=== PATIENT | male | born 1990 | race Caucasian/White ===

== ENCOUNTER 2021-08-24 13:15 | Emergency (ER) | payer BC, SELFPAY ==
--- NOTE | 2021-08-24 13:26 | ED.URI ---
HPI - URI/Sore Throat General Chief Complaint: Upper Respiratory Infection Stated Complaint: fever,back pain Source: patient Mode of arrival: ambulatory Limitations: no limitations History of Present Illness HPI Narrative: Mr. Young is a 31-year-old male patient presenting to the clinic today with complaints of fever and back pain x 1 day. He reports fever higher of 101.8 ?F this morning. He also reports some chest discomfort and shortness of breath as well as a throat sore throat. Reports that he was having difficulty walking this morning due to his low back pain. He denies any urinary symptoms or bowel changes. Denies any saddle anesthesia or loss of bowel or bladder. MD elicited complaint: fever, sore throat and nasal congestion Related Data Allergies Allergy/AdvReac Type Severity Reaction Status Date / Time No Known Allergies Allergy Verified 08/24/21 14:24 Review of Systems Review of Systems: Pertinent positives per HPI. Patient denies any chills, rash, headache, visual changes, dizziness, palpitations, nausea, vomiting, diarrhea, constipation, abdominal pain, or any urinary issues. PMFSH Comments At the time of my signature, I reviewed and agree with the nursing past medical, surgical, social, and family history. There is no relevant family history pertinent to the patient complaint. Exam Narrative: General: Well-developed, well nourished,mild to moderate ill-appearing Head: Normocephalic, atraumatic Eyes: Pupils equally round and reactive to light bilaterally, EOM intact, sclera and conjunctive clear, no discharge, lids normal Ears: TMs intact and clear, ear canals clear, no drainage, grossly hearing normal. Nose: Nares patent, clear nasal discharge, no inflammation, no sinus tenderness. Mouth: Oral pharynx without lesions or masses, good dentition, MMM. Oropharynx mildly red without tonsillar swelling or exudate Neck: Supple, trachea midline, no enlargement of anterior or posterior cervical nodes, no thyroid masses or goiter palpable. Cardio: Regular rate and rhythm, s1 and s2 normal, no murmur appreciated. Resp: Clear to auscultation bilaterally, no rhonchi, rales, wheezing or rubs Musculoskeletal: No deformity, tender to palpation over the musculature of the low back, grossly normal range of motion, mild pain with bilateral SLT at approximately 30 degrees, muscle strength strong and equal, peripheral pulse strong, no edema, no cyanosis, normal gait and station Course Course Emergency Course: Portions of this record may have been created with voice recognition software. Level of Care: Express Care Visit Vital Signs Vital signs: Vital signs reviewed MDM - URI/Sore Throat MDM Narrative Medical decision making narrative: At the time of visit patient is resting comfortably on the exam table. Is mild to moderately ill-appearing. Is reporting low back pain, fever, and sore throat initially. Strep screen and influenza testing was negative. Urine was positive for protein, bilirubin, and ketones. Negative for blood, nitrates, or leukocytes. Will send urine for culture. After refilling these results patient stated that he was having some midsternal chest discomfort and some shortness of breath. EKG showed sinus rhythm with a heart rate of 84 without ectopy, lung sounds are clear and SPO2 on room air is 99%. Covid swab was obtained and was positive. Symptoms have only been going on since yesterday so I feel that patient would be a candidate for the oral antiviral medications. Work note given and discussed importance of isolation. Supportive measures were also discussed and patient voiced understanding of instructions. Differential Diagnosis Differential diagnosis: Likely upper respiratory infection, croup, sinusitis, viral infection, bronchitis, influenza, pharyngitis and other (Influenza) ECG Data EKG #1: Attestation: I personally reviewed and interpreted this ECG as follows: ECG completion date
[2021-08-24 13:31] VITALS: PULSE 113; RESP 20; TEMP 37.6; O2SAT 99
--- NOTE | 2021-08-24 14:07 | PC.NURSE ---
orthostaic vitals Lying 131/82 86-20 Sitting 127/79 96 20 standing 121/75 108 20 Ekg completed
--- NOTE | 2021-08-24 14:09 | ECG_ITS ---
Measurements Intervals [place] Rate: 84 P: 38 MO: 133 QRS: 75 QRSD: 104 T: 86 QT: 327 QTc: 389 Interpretive Statements SINUS RHYTHM INCOMPLETE RIGHT BUNDLE BRANCH BLOCK [90+ ms QRS DURATION, TERMINAL R IN V1/V2, 40+ ms S IN I/aVL/V4/V5/V6] BORDERLINE ECG NO PREVIOUS ECG AVAILABLE FOR COMPARISON Electronically Signed On 08-24-2021 17:03:24 CDT by Tyler Gonzalez M.D.
== END 2021-08-24 14:41 | disposition home or self-care (01) ==
PROVIDERS: Emergency Provider Nurse Practitioner Family
DX: U07.1 COVID-19 (principal)
CPT/HCPCS: 81003; 87081; 87086; 87426; 87804; 87880; 93005; 99203; C9803; G0463

== ENCOUNTER 2022-05-08 15:45 | Emergency (ER) | payer BC, SELFPAY ==
--- NOTE | ~2022-05-08 | XR_ITS ---
EXAMINATION: XR shoulder LT min 2V DATE: 05/08/2022 16:44 INDICATION: Posterior left shoulder pain TECHNIQUE: AP internally and externally rotated, AP oblique externally rotated and axillary views of the left shoulder were obtained. COMPARISON: None FINDINGS: Normal alignment. No fracture. Glenohumeral joint is normal. Acromioclavicular joint is normal. Smal l sclerotic bone island at the left humeral head. Soft tissues are unremarkable. Visualized portion o f the left upper lung is clear. IMPRESSION: Negative left shoulder radiographs. Reviewed, dictated and finalized at location [employer]
[2022-05-08 16:00] VITALS: BP 130/80; PULSE 71; RESP 16; TEMP 36.4; O2SAT 99
--- NOTE | 2022-05-08 16:13 | ED.EXTPRO ---
HPI - Extremity Problem General Chief complaint: Extremity Injury, Upper Stated complaint: Lt Shoulder Pain Time Seen by Provider: 05/08/22 16:13 Source: patient, RN notes reviewed and old records reviewed Mode of arrival: ambulatory Limitations: no limitations History of Present Illness HPI Narrative: 32-year-old male presents to the [facility] with complaints of left posterior shoulder pain several weeks. Has taken ibuprofen occasionally. Patient reports the pain just got a little worse today he came in for evaluation. denies any injury. No chest pain or shortness of breath. Pain does not radiate outside the shoulder. Related Data Allergies Allergy/AdvReac Type Severity Reaction Status Date / Time No Known Allergies Allergy Verified 05/08/22 17:04 Review of Systems Review of Systems: All systems reviewed & are unremarkable except as noted in HPI and below Constitutional: Constitutional: Reports no additional constitutional complaints Eyes: Eyes: Reports no additional eye complaints ENT: Reports system reviewed and no additional complaints, except as documented Cardiovascular: Cardiovascular: Reports no additional cardiovascular complaints, Denies chest pain and Denies dyspnea Respiratory: Respiratory: Reports no additional respiratory complaints, Denies chest congestion, Denies cough and Denies dyspnea Gastrointestinal: Gastrointestinal: Reports no additional gastrointestinal complaints, Denies abdominal pain, Denies nausea and Denies vomiting Musculoskeletal: Musculoskeletal: Reports as per HPI, Reports arthralgias ( Posterior left shoulder) and Denies joint swelling Integumentary/Breasts: Skin/Breast: Reports system reviewed and no additional complaints, except as docu Neurologic: Reports system reviewed and no additional complaints, except as documented Psychiatric: Psychiatric: Reports no additional psychiatric complaints Allergic/Immunologic: Allergic/Immunologic: Reports no additional allergic/immunologic complaints PMFSH Comments At the time of my signature, I reviewed and agree with the nursing past medical, surgical, social, and family history. There is no relevant family history pertinent to the patient complaint. Exam Const: General: cooperative, healthy appearing, comfortable, no acute distress, well developed, alert and well nourished Nutritional Appearance: well nourished Orientation/consciousness: patient oriented x3 Limitations: no limitations HENMT: Head: normal to inspection Ears: hearing grossly normal bilaterally and external ears normal Face/Nose/Sinus: Normal external nose present, Normal nares present, Normal nasal mucous membranes and turbinates present and normal facial exam Face and sinus: normal facial exam Mouth: Yes Normal oral and palatal mucosa present, Yes lip normal and Yes moist mucous membranes Eyes: General: appearance normal, both eyes and all related structures Alignment and Position: alignment normal Periorbital: periorbital findings normal Conjunctivae: conjunctivae normal Pupils: Equal, round and reactive pupils present EOM: EOMs intact bilaterally Neck: Neck: normal visual inspection, full ROM, no lymphadenopathy and no meningeal signs Chest: Chest palpation & inspection: normal inspection of the chest Resp: Effort & Inspection: normal respiratory effort and able to speak in complete sentences Auscultation: clear to auscultation bilaterally, no crackles, no rales, no rhonchi and no wheezes Cardio: Rate: regular rate Rhythm: regular rhythm Back/Spine/Pelvis: Cervical Spine: cervical ROM normal, No cervical muscular tenderness and No Cervical spine tenderness Thoracic/Lumbar Spine: No paraspinal muscle tenderness, No thoraco-lumbar spasm, No thoracic spinal tenderness and No lumbar spinal tenderness Skin: General skin exam: normal color and no rashes or lesions noted Lesions: no lesions Rashes: no rashes Wounds: no wounds Neuro: General: patient oriente
== END 2022-05-08 17:13 | disposition home or self-care (01) ==
PROVIDERS: Emergency Provider Nurse Practitioner
DX: M77.8 Other enthesopathies, not elsewhere classified (principal)
CPT/HCPCS: 73030; 99213; G0463